=== PATIENT | male | born 1960 | race Caucasian/White ===

== ENCOUNTER 2021-04-17 17:00 | Emergency (ER) | payer OTHER ==
[~2021-04-17] VITALS: Ht 172.7 cm; Wt 99.8 kg
[~2021-04-17 17:00] MED LIST: FLOMAX0.4 MG PO; NORCO 5-325 TA1 EAC1 PO
[2021-04-17] MEDS ORDERED: ELIQUIS5 MG PO (17:11)
[2021-04-17] MEDS ORDERED: SUPER THERAVIT1 EACH PO (17:11)
[2021-04-17] MEDS ORDERED: LISINOPRIL10 MG PO (17:11)
[2021-04-17] MEDS ORDERED: LIPITOR40 MG PO (17:12)
[2021-04-17] MEDS ORDERED: ASA81BEC PO (17:12)
[2021-04-17] MEDS ORDERED: CELEXA20 MG PO (17:12)
[2021-04-17] MEDS ORDERED: FAMOTIDINE 20 M20 MG PO (17:12)
[2021-04-17] MEDS ORDERED: AMLODIPINE BESY10 MG PO (17:13)
[2021-04-17 17:54] LABS: ABSOLUTE BASOPHILS 0.1 thou/uL (0.0-0.2); ABSOLUTE EOSINOPHILS 0.3 thou/uL (0.0-0.7); ABSOLUTE LYMPHOCYTES 1.7 thou/uL (0.8-5.3); ABSOLUTE MONOCYTES 0.8 thou/uL (0.0-1.2); ABSOLUTE NEUTROPHILS 4.8 thou/uL (1.6-8.1); EOSINOPHILS 3.5 %; HEMATOCRIT 37.7 % (42.0-52.0); HEMOGLOBIN 12.2 gm/dL (14.0-18.0); LYMPHOCYTES 22.2 %; MCH 27.2 pg (26.0-34.0); MCHC 32.4 g/dL (28.0-37.0); MONOCYTES 10.3 %; MPV 8.3 fl. (7.2-11.1); NUCLEATED RBCS 0 /100WBC; PLATELET COUNT* 218 thou/uL (150-400); RBC 4.49 mil/uL (4.50-6.00); WBC 7.6 thou/uL (4.0-11.0)
[2021-04-17 17:58] LABS: URINE BLOOD NEGATIVE (Negative); URINE CLARITY CLEAR; URINE COLOR YELLOW; URINE GLUCOSE-RANDOM NEGATIVE (Negative); URINE KETONES TRACE (Negative); URINE LEUKOCYTES-REFLEX NEGATIVE (Negative); URINE NITRITE-REFLEX NEGATIVE (Negative); URINE PROTEIN NEGATIVE (Negative); URINE SPECIFIC GRAVITY >= 1.030 (1.005-1.030); URINE UROBILINOGEN 0.2 E.U./dl (0.2-1.0)
[2021-04-17 18:00] LABS: ICTOTEST (BILI CONFIRMATORY) Negative (Negative); URINE BILIRUBIN 1+ (Negative)
[2021-04-17 18:03] LABS: CALCIUM 8.4 mg/dL (8.5-10.1); POTASSIUM 4.5 mmol/L (3.5-5.1)
[2021-04-17 18:13] LABS: ALBUMIN 4.1 g/dL (3.4-5.0); TOTAL BILIRUBIN 0.3 mg/dL (<0.1-1.0); TOTAL PROTEIN 7.5 g/dL (6.4-8.2)
[2021-04-17] MEDS ORDERED: SIMETHICON CHEW80 M1 PO (19:07)
[2021-04-17 19:27] VITALS: BP 113/67
[2021-04-17] MEDS ORDERED: HYDROCODON-ACE1 EAC8 PO (19:38)
--- NOTE | 2021-04-18 09:02 | EKG ---
[place] [address] ELECTROCARDIOGRAM REPORT Name: ASHLEY CEDILLO Room: [facility]#: [id number] Admission: 04/17/21 Attend Phys: Discharge: 04/17/21 Date of : 60 Date of Service: 04/17/21 1739 Report #: [id number] THIS REPORT FOR: //name// [facility] ED Test Date: 2021-04-17 Test Time: 17:39:25 Pat Name: ASHLEY CEDILLO Department: Room: Gender: Willow Analyst: [facility] : 1960 Requested By: Brandon Easley Order Number: [id number] MD: Ti Leal Measurements Intervals [place] Rate: 66 P: 82 GA: 157 QRS: 77 QRSD: 103 T: 72 QT: 405 QTc: 425 Interpretive Statements Sinus rhythm septal infarct, old Compared to ECG 02/21/2019 18:11:17 Myocardial infarct finding now present Electronically Signed On 04-18-2021 9:02:46 CDT by Ti Leal [email or web address] <ELECTRONICALLY SIGNED> By: Ti Leal MD, [facility] 04/18/21 0902 1739 1739 Ti Leal MD, [facility] /EPI
== END 2021-04-17 19:27 | disposition home or self-care (01) ==
LOC: M.ERS 17:00
PROVIDERS: Nurse Practitioner Psychiatric/Mental Health
DX: R10.84 Generalized abdominal pain (principal); Z20.822 Contact with and (suspected) exposure to COVID-19; R19.7 Diarrhea, unspecified; K21.9 Gastro-esophageal reflux disease without esophagitis; Z86.73 Personal history of transient ischemic attack (TIA), and cerebral infarction without residual deficits; Z86.718 Personal history of other venous thrombosis and embolism; Z79.899 Other long term (current) drug therapy; Z79.82 Long term (current) use of aspirin